=== PATIENT | female | born 1995 | race Caucasian/White ===

== ENCOUNTER 2019-04-23 18:37 | Observation (INO) ==
[2019-04-23 19:27] LABS: BASO# 0.01 X1000 (0.0-0.2); BASO% 0.2 % (0.0-0.8); EOS% 3.3 % (0.0-10.0); HEMATOCRIT 38.2 % (37.0-47.0); HEMOGLOBIN 12.2 g/dL (12.0-16.0); LYMPH# 1.82 X1000 (1.2-3.4); LYMPH% 30.4 % (20.5-51.1); MCH 26.8 PG (27-31); MCHC 31.9 g/dL (33-37); MCV 83.8 FL (81-99); MONO# 0.35 X1000 (0.11-0.59); MONO% 5.8 % (1.7-9.3); NEUT# 3.61 X1000 (1.4-6.5); NEUT% 60.3 % (42.2-75.2); PLT 316 X1000 (130-400); RBC 4.56 XMIL (4.2-5.4); RDW 14.6 % (11.5-14.5); WBC 5.99 X1000 (4.8-10.8)
[2019-04-23 20:06] LABS: ACETAMINOPHEN < 1.2 ug/mL (10-30); AGAP 15; ALB/GLOB RATIO 1.4; ALBUMIN 4.5 g/dL (3.5-5.0); ALKALINE PHOSPHATASE 79 U/L (32-104); BUN 4 mg/dL (8-22); CHLORIDE 103 mmol/L (98-107); COSMO 278; CREATININE 0.6 mg/dL (0.5-0.9); ESTIMATED GFR > 60; GLUCOSE 94 mg/dL (70-104); GOT 16 U/L (10-30); GPT 9 U/L (10-36); MAGNESIUM 2.3 mg/dL (1.5-2.7); POTASSIUM 3.5 mmol/L (3.5-5.1); SODIUM 141 mmol/L (136-145); TCO2 23 mmol/L (25-35); TOTAL BILIRUBIN < 0.15 mg/dL (0.20-1.00); TOTAL PROTEIN 7.8 g/dL (6.3-8.3)
[2019-04-23] MEDS ORDERED: NICODERM PATCH TD ONE ×2 (20:15→22:15)
[2019-04-23 20:21] LABS: URINE SOURCE CLEAN CATCH
[2019-04-23 20:22] LABS: FREE T4 1.19 ng/dL (0.93-1.70); TSH 0.65 uIUmL (0.27-4.20)
[2019-04-23 20:27] LABS: BILIRUBIN URINE NEGATIVE (NEGATIVE); BLOOD URINE SMALL (NEGATIVE); COLOR STRAW; GLUCOSE URINE NEGATIVE (NEGATIVE); KETONE URINE NEGATIVE (NEGATIVE); LEUKOCYTES URINE NEGATIVE (NEGATIVE); NITRITE URINE NEGATIVE (NEGATIVE); PH URINE 7.5; PROTEIN URINE NEGATIVE (NEGATIVE); SP GRAVITY URINE 1.009; TURBIDITY URINE CLEAR (CLEAR); UROBILINOGEN URINE NORMAL (NORMAL)
[2019-04-23 20:29] LABS: UR EPITHELIAL CELLS <10 /HPF (<10); URINE BACTERIA NEGATIVE /HPF; URINE RBC <10 /HPF (<10); URINE WBC <10 /HPF (<10)
[2019-04-23 20:42] LABS: UR AMPHETAMINES QUAL NONE DETECTED (NONE DETECT); UR BARBITUATES QUAL NONE DETECTED (NONE DETECT); UR BENZODIAZEPIN QUAL PRESUMPTIVE POSITIVE (NONE DETECT); UR CANNABINOIDS QUAL NONE DETECTED (NONE DETECT); UR COCAINE QUAL NONE DETECTED (NONE DETECT); UR METHADONE QUAL NONE DETECTED (NONE DETECT); UR OPIATES QUAL NONE DETECTED (NONE DETECT); UR OXYCODONE QUAL NONE DETECTED (NONE DETECT); UR PCP QUAL NONE DETECTED (NONE DETECT)
--- NOTE | 2019-04-23 21:16 | Diag Imaging Result Doc PS360 ---
EXAM: CHEST-PORTABLE - 04/23/2019 HISTORY: OD/SI TECHNIQUE: Portable chest COMPARISON: 11/26/2015 FINDINGS: Heart size is normal. The lungs appear clear. The lungs are possibly slightly hyperexpanded. There is no pleural effusion or pneumothorax identified. There is slight thoracic dextroscoliosis versus artifact of positioning noted. IMPRESSION: Possible slightly hyperexpanded lungs. No other evidence of acute disease. Electronically signed by [employer] 04/23/2019 9:14 PM
[2019-04-23] MEDS ORDERED: NS 1,000 ML IV ONE ×2 (22:11→22:26)
[2019-04-23] MEDS: NS + KCL 20 MEQ 1,000 ML IV SCH (23:45)
[2019-04-23] MEDS ORDERED: ZOFRAN IV PRN (23:45)
[2019-04-23] MEDS ORDERED: MOTRIN PO PRN (23:45)
--- NOTE | 2019-04-24 00:07 | EKG Report ---
Test Performed on : 04/23/2019 8:21:48 PM Test Reason : CP Blood Pressure : / mmHG Vent. Rate : 123 BPM Atrial Rate : 123 BPM P-R Int : 122 ms QRS Dur : 070 ms QT Int : 318 ms P-R-T Axes : 065 065 013 degrees QTc Int : 455 ms Sinus tachycardia. Possible Left atrial enlargement Borderline ECG When compared with ECG of 16-OCT-2017 11:25, No significant change was found Unconfirmed Result
[2019-04-24] MEDS: LOVENOX SUBQ SCH (01:32)
--- NOTE | 2019-04-24 04:12 | HISTORY AND PHYSICAL ---
PRIMARY CARE PHYSICIAN: Wale Rojas MD, in [place] REASON FOR ADMISSION: Feeling suicidal. Ingestion of in an inordinate amount of home medications. Ms. Caryn Candelaria is 23-year-old white woman with a past medical history of suicidal ideations and clinical depression, reflux disease, IBS. She was brought in today at the behest of her family after they noticed that she was a little sleepy and drowsy, and they confronted her and she told him she had taken about 25 tablets of Ambien 12.5 extended release and an unspecified amount of Xanax. Says she feels a little sleepy, but otherwise has had no untoward side effects from ingesting these medications. She denies any pain, any shortness of breath, any cardiorespiratory, GI, complaints. No focal neurological complaints. She denies any antecedent history of audiovisual hallucinations or suicidal ideations prior to this. When I confronted her about suicide ideations, she states that she just wanted to avoid her stressors in her life by taking these medications, but did not overtly state that she was feeling suicidal. REVIEW OF SYSTEMS: Twelve system review was done. Positive findings per HPI. ALLERGIES: Acetaminophen. SOCIAL HISTORY: Smokes half a pack a day. No illicit drug use. Per patient lives with her parents. SURGICAL HISTORY: States she has had surgery for her feet as a child. 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 HOME MEDICATIONS: She is supposed to be on Viibryd, Zyprexa, nortriptyline, and emphatically denies taking these medications in excessive amounts. She also is supposed to be on gabapentin 100 mg t.i.d., the Viibryd is 40 mg at breakfast, nortriptyline 25 mg at bedtime, Ambien 12.5 mg at bedtime, Zyprexa 5 mg at bedtime, Xanax 1 tablets 2 mg tablet 1 q.6, and ibuprofen p.r.n. FAMILY HISTORY: Notable for hypertension. PAST MEDICAL HISTORY: As per above, including migraine headaches and hypothyroidism. LABORATORY DATA: White count 6000, hemoglobin and hematocrit 12 and 38, platelets 316,000. Potassium 3.5, BUN 4, creatinine 0.6, magnesium 2.3. TSH is normal. Salicylates and acetaminophen undetected. UDS positive for benzodiazepine. Urinalysis essentially bland and benign. Chest films also normal. EKG just shows sinus tachycardia with nonspecific ST-wave changes. PHYSICAL EXAMINATION: VITAL SIGNS: Blood pressure is 145/117, heart rate is 116, respiratory rate is 29, temperature is 98.4 degrees, 100% on room air. GENERAL: She is a thin, young, woman, in no acute distress. She is lying comfortably in bed surprisingly, and awake and oriented to person, place, and time. Affect is sad. Has depressed mood. HEENT: Head is normocephalic, atraumatic. Eyes, patient has significantly dilated pupils which are reactive to light. No nystagmus. RAY, EOMI. She is anicteric and not pale. ENT exam is grossly normal. Some cyanosis. NECK: Supple. No JVD or carotid bruit. No thyromegaly. CHEST: Clear when auscultated into both lung alvarez. CARDIOVASCULAR: First and second sounds heard. No gallops or rubs. Rhythm is tachycardic. ABDOMEN: Abdomen is scaphoid, soft, nontender. No organomegaly. Bowel sounds are normal. RECTAL: Deferred at this time. EXTREMITIES: Good distal pulse. Volumes regular, symmetrical. No edema, clubbing, or cyanosis. NEUROLOGIC: No gross focal deficits. No tremors or asterixis. SKIN: Intact, no breakdown, lesions or erythema. MUSCULOSKELETAL: Exam is grossly normal. ASSESSMENT: Polysubstance ingestion. Even though there is evidence she is taking anxiolytics, i.e., Xanax and Ambien, there is a component of her findings, i.e., tachycardia, elevated blood pressure, and dilated pupils that makes me suspect that she is on sympathomimetic drugs. We will recommend followup EKG in the morning. Continue aggressive hydration and electrolyte repletion. I would recommend her home medications bottle be brought and a pill count be done to ensure she did not overdose on nortriptyline or Viibryd or Zyprexa which can give this picture I am seeing. The patient still denies taking any inordinate amount of other medications other than Xanax and Ambien. cc: Raphael Yeager MD [facility]
[2019-04-24] MEDS: NS + KCL 20 MEQ 1,000 ML IV SCH (07:24)
[2019-04-24 08:25] LABS: BASO# 0.01 X1000 (0.0-0.2); BASO% 0.2 % (0.0-0.8); EOS# 0.35 X1000 (0.0-0.7); EOS% 5.4 % (0.0-10.0); HEMATOCRIT 37.4 % (37.0-47.0); HEMOGLOBIN 11.8 g/dL (12.0-16.0); IMM GRAN# 0.02 X1000 (0.0-0.04); IMM GRAN% 0.3 % (0.0-0.5); LYMPH# 1.81 X1000 (1.2-3.4); MCH 26.8 PG (27-31); MCHC 31.6 g/dL (33-37); MCV 84.8 FL (81-99); MONO# 0.45 X1000 (0.11-0.59); MPV 10.2 FL (7.4-10.4); NEUT# 3.83 X1000 (1.4-6.5); NEUT% 59.1 % (42.2-75.2); PLT 296 X1000 (130-400); RBC 4.41 XMIL (4.2-5.4); RDW 14.6 % (11.5-14.5); WBC 6.47 X1000 (4.8-10.8)
--- NOTE | 2019-04-24 08:28 | EKG Report ---
Test Performed on : 04/24/2019 08:24:42 AM Test Reason : chest pain Blood Pressure : / mmHG Vent. Rate : 109 BPM Atrial Rate : 109 BPM P-R Int : 128 ms QRS Dur : 068 ms QT Int : 326 ms P-R-T Axes : 069 055 026 degrees QTc Int : 439 ms Sinus tachycardia. Possible Left atrial enlargement Borderline ECG When compared with ECG of 23-APR-2019 20:21, (Unconfirmed) No significant change was found Unconfirmed Result
[2019-04-24 09:14] LABS: AGAP 14; ALB/GLOB RATIO 1.6; ALBUMIN 4.1 g/dL (3.5-5.0); ALKALINE PHOSPHATASE 67 U/L (32-104); BUN 2 mg/dL (8-22); CALCIUM 8.6 mg/dL (8.8-10.2); CHLORIDE 103 mmol/L (98-107); COSMO 276; CREATININE 0.7 mg/dL (0.5-0.9); ESTIMATED GFR > 60; GLUCOSE 106 mg/dL (70-104); GOT 13 U/L (10-30); GPT 6 U/L (10-36); POTASSIUM 3.5 mmol/L (3.5-5.1); SODIUM 140 mmol/L (136-145); TCO2 23 mmol/L (25-35); TOTAL BILIRUBIN 0.22 mg/dL (0.20-1.00); TOTAL PROTEIN 6.6 g/dL (6.3-8.3)
[2019-04-24] MEDS: XANAX PO SCH ×3 (09:52→21:07)
[2019-04-24] MEDS ORDERED: D5 1/2 NS 1,000 ML IV SCH (10:30)
--- NOTE | 2019-04-24 13:14 | PROGRESS NOTE ---
DATE: 04/24/2019 SUBJECTIVE: This patient seems to be feeling better. She has been tachycardic in the 110s, 120s and the blood pressure has been elevated. She has been requesting to place her back on her Xanax, which I did. I discussed the case with the psychiatric department and hopefully the psychiatrist will see her today. I do believe once this patient is more stable, she can be transferred to [facility] or any other psych facility since this patient has been trying multiple times to commit suicide. As per the patient this is the 5th time. Laboratory looks good, including liver enzymes and electrolytes. OBJECTIVE: Vital Signs: Temperature 97.7, pulse 125, respiratory rate 21, blood pressure 176/113, oxygen saturation 100% on room air. HEENT: Head normocephalic, no trauma. PERRLA. Neck: Supple. No JVD. No masses. Central trachea. Chest: Clear to auscultation. No wheezing. No rales. Abdomen: Soft, nontender, nondistended. No hepatosplenomegaly. Extremities: No clubbing, no cyanosis. Neurological: The patient is awake. She is alert. She is oriented x3. She does not have any neurological deficits. LABORATORY: WBC 6.4, hemoglobin 11.8, hematocrit 37.4, platelets 296,000. Sodium 140, potassium 3.5, chloride 103, bicarbonate 23, BUN 2, creatinine 0.7 glucose 106, calcium 8.6, total bilirubin 0.2. AST 13, ALT 6, alkaline phosphatase 67. ASSESSMENT AND PLAN: 1. Suicide attempt. As per the patient, this is the 5th time or so that she tried to kill herself, she has been depressed because her fiance is in [facility] for a month now and as per the patient she took around 25 pills of Ambien, I discussed the case with Psychiatry Department. I will restart her Xanax because she has been requesting that and I want to avoid withdrawal symptoms. The Psychiatry Department hopefully will evaluate this patient today and will help us out with her medications. 2. Hypertension and tachycardia, I will continue with IV fluids, she has been in the 110s-120s and the blood pressure mostly in the 140s-150s, I will monitor for now seems to be sinus tachycardia. 3. History of anxiety and depression. Aware, I will hold for now some of her medications, but I will wait for psychiatric department recommendations. 4. History of multiple suicide attempts aware, per #1. cc: Freddy Atkinson MD
[2019-04-24] MEDS ORDERED: PRILOSEC PO ONE (16:38)
[2019-04-24] MEDS: NEURONTIN PO SCH (16:47)
[2019-04-24] MEDS ORDERED: AMBIEN PO SCH (21:00)
[2019-04-24] MEDS ORDERED: REMERON PO SCH (21:00)
[2019-04-24] MEDS ORDERED: ZYPREXA PO SCH (21:00)
[2019-04-25] MEDS: LOVENOX SUBQ SCH (01:24)
[2019-04-25] MEDS: XANAX PO SCH ×2 (03:41→08:49)
[2019-04-25] MEDS ORDERED: PRILOSEC PO SCH (07:00)
[2019-04-25 07:54] VITALS: BP 138/98
[2019-04-25] MEDS ORDERED: VIIBRYD PO SCH (08:00)
[2019-04-25] MEDS: NEURONTIN PO SCH (08:49)
[2019-04-25] MEDS ORDERED: LOPRESSOR PO SCH (09:00)
[2019-04-25 09:34] LABS: AGAP 11; ALB/GLOB RATIO 1.4; ALBUMIN 3.9 g/dL (3.5-5.0); ALKALINE PHOSPHATASE 68 U/L (32-104); BUN 5 mg/dL (8-22); CALCIUM 8.5 mg/dL (8.8-10.2); CHLORIDE 101 mmol/L (98-107); COSMO 271; CREATININE 0.7 mg/dL (0.5-0.9); ESTIMATED GFR > 60; GLUCOSE 91 mg/dL (70-104); GOT 13 U/L (10-30); GPT 7 U/L (10-36); MAGNESIUM 1.9 mg/dL (1.5-2.7); PHOSPHORUS 4.1 mg/dL (2.7-4.5); POTASSIUM 3.4 mmol/L (3.5-5.1); SODIUM 137 mmol/L (136-145); TCO2 25 mmol/L (25-35); TOTAL BILIRUBIN 0.16 mg/dL (0.20-1.00); TOTAL PROTEIN 6.6 g/dL (6.3-8.3)
[2019-04-25] MEDS ORDERED: KLOR-CON PO ONE (09:37)
--- NOTE | 2019-04-26 13:37 | DISCHARGE SUMMARY ---
ADMISSION DATE: 04/23/2019 DISCHARGE DATE: 04/25/2019 DISCHARGE DIAGNOSES: 1. Suicide attempt, recurrent. 2. Hypertension and tachycardia. 3. Anxiety and depression. 4. Nicotine dependence. PROCEDURES PERFORMED: Chest x-ray dated 04/23/2019. Impression: Possible slightly hyperexpanded lungs. No other evidence of acute disease. HOSPITAL COURSE: A 23-year-old female with past medical history of suicidal ideation and attempts, clinical depression, reflux, and possible IBS. She was brought and admitted on 04/23/2019 by the family after they noticed that she was a little bit sleepy and drowsy. They confronted her, and she told I believe her dad that she had taken about 25 tablets of Ambien 12.5 extended release, and an unspecified amount of possible Xanax. She feels a little bit sleepy upon admission, but otherwise she had no other side effects for those medications. She denied any pain or shortness of breath, cardiorespiratory, genitourinary or gastrointestinal complaints. No focal neurological complaints. No hallucinations. When I evaluated this patient, she states that she had a previous history of suicide attempt. Apparently, she has been hospitalized before at [facility]. She does have a psychiatrist as well. The next day of admission when I evaluated this patient, she was feeling better. We noticed though that she was slightly tachycardic, and the blood pressure was slightly elevated as well. She has been that way for 2 days now much but better compared with admission. The first heart rate was in the 130s, but at the end was in the 100's. The blood pressure at the end was in the 130's so I decided to put this patient on metoprolol low dose. I will find an appointment with one of our cardiologists to evaluate this patient as an outpatient. This has been explained to the patient, and she will need to see Dr. Arnold on 05/02/2019 at 10:30 in the morning. On the other hand, I consulted the psychiatric department and I really appreciate their recommendations. Dr. Jett, he evaluated this patient on 04/24/2019. After evaluating this patient, he has decided that she appears to be safe from psychiatric perspective to be discharged home with close follow-up with her psychiatrist as an outpatient. We followed his recommendations, and we have decided to call the psychiatrist's office. Actually, she has an appointment with Peter Craven tomorrow, 04/26/2019 at 8:30 in the morning. At the moment of discharge, this patient was in stable medical condition. I instructed the nurse to tell the parents that she is going to be discharged so they can keep a close eye on her. It has been recommended by the psychiatrist to stop her Pamelor, and start this patient on Remeron 7.5 mg at bedtime, which I did. I continued with her home medications as well. She seems to be stable. DISCHARGE EXAMINATION: Vital Signs: Temperature 97.6 degrees, pulse 103, respiratory rate 19, blood pressure 138/98, and oxygen saturation 98 percent on room air. HEENT: Head normocephalic. No trauma. PERRLA. Neck: Supple. No JVD. No masses. Central trachea. Chest: Clear to auscultation. No wheezing. No rales. Cardiovascular: RRR. Slightly tachycardic. Abdomen: Soft, nontender, nondistended. No hepatosplenomegaly. Extremities: No edema. No clubbing. No cyanosis. Neurological: The patient is awake and alert. She is oriented x3. No focal neurological deficits. LABORATORY: Sodium 137, potassium 3.4, chloride 101, bicarbonate 25, BUN 5, creatinine 0.7 glucose 91, and calcium 8.5. Normal LFTs. DISCHARGE MEDICATIONS: 1. Alprazolam 2 mg p.o. q.6 hours. 2. Gabapentin 800 mg p.o. t.i.d. 3. Metoprolol 12.5 mg p.o. b.i.d. 4. Remeron 7.5 mg p.o. at bedtime. 5. Olanzapine 5 mg p.o. at bedtime. 6. Prilosec 20 mg p.o. daily. 7. Viibryd 40 mg p.o. with breakfast. 8. Ambien 12.5 mg p.o. at bedtime. TIME SPENT: Time discharging this patient 20 minutes. cc: Freddy Atkinson MD
== END 2019-04-25 10:30 | disposition home or self-care (01) ==
LOC: SUPCPDRO → ED 18:37 → EDIPHOLD 18:38 → SUATTDRO 18:38 → INTOOBSV 18:38 → ICU 04-24 10:48
PROVIDERS: ATTEND Internal Medicine